=== PATIENT | female | born 1985 | race Caucasian/White ===

== ENCOUNTER 2017-06-26 19:02 | Emergency (ER) | payer OTHER ==
[~2017-06-26] VITALS: Ht 175.3 cm; Wt 99.8 kg
--- OUTSIDE RECORDS SUMMARY | 2017-06-26 19:11 | External Medical Summary Rpt | CCD ---
Author Author [facility] Organization [employer] Address Unknown Phone Unavailable Purpose Continuity of Care Document - through 2016
--- OUTSIDE RECORDS SUMMARY | 2017-06-26 19:11 | External Medical Summary Rpt | CCD ---
Author Author , ROSAURA KAPLAN Address Unknown Phone [email or web address] Purpose Continuity of Care Document - through 2016
--- OUTSIDE RECORDS SUMMARY | 2017-06-26 19:11 | External Medical Summary Rpt | CCD ---
Author Author , ROSAURA KAPLAN Address Unknown Phone [email or web address] ([place]) Purpose Continuity of Care Document - through 2016
--- OUTSIDE RECORDS SUMMARY | 2017-06-26 19:12 | External Medical Summary Rpt | CCD ---
Demographics Preferred Language Setswana Marital Status Unknown Holiness Affiliation Unknown Race Unknown Ethnic Group Unknown Author Author , ROSAURA KAPLAN Address Unknown Phone Immunization No patient found.
--- OUTSIDE RECORDS SUMMARY | 2017-06-26 19:12 | External Medical Summary Rpt | CCD ---
Demographics Preferred Language Frisian Marital Status Unknown Hindu Affiliation Unknown Race Unknown Ethnic Group Unknown Author Author , ROSAURA KAPLAN Address Unknown Phone Immunization No patient found.
[2017-06-26] MEDS ORDERED: PREDNISONE 20MG20 MG PO (20:02)
[2017-06-26] MEDS ORDERED: ZITHROMAX Z PA250 MG PO (20:02)
[2017-06-26] MEDS ORDERED: BENZONATATE200 MG PO (20:02)
[2017-06-26] MEDS ORDERED: PROVENTIL0.09 MG/A1 IH (20:02)
[2017-06-26 20:03] VITALS: BP 154/98
--- NOTE | 2017-06-26 20:03 | Urgent Treatment Center Report ---
History of Present Issue Date/Time Seen by Provider 06/26/171946 Visit Reason Pt arrived:Walked Presenting Problem:SORE THROAT, CHEST CONGESTION X 2 WEEKS Location if Accident: Onset of symptoms date/time:/ or onset unknown for:MEDICAL HX UNKNOWN Have you (or family members/close friends) recently traveled outside the [place]? N If Yes, where/when: Have you had exposure to infectious disease within the past month? TB? Other? Specify: c/o cough, chest congestion, sore throat x 2-3 weeks. Initially fever and cough but fever resolved. Thought she was improving until symptoms worsened 2-3 days ago. No improvement with robitussin, tylenol, ibuprofen "and other things I can' t remember over the counter". Hx of tobacco use but quit 2 years ago. Reports bronchitis each winter and knows she just needs a zpack to get better. Hx of lisinopril. Hasn't been monitoring BP at home although she has a cuff and can. Denies GARVEY, vision change, CP. Mild SOA today w/ exertion at work. Denies known wheezing but at times, has "felt wheezy". Works in a hosptial setting. Source patient Exam Limitations no limitations ALLERGIES Coded Allergies: No Known Allergies (06/26/17) History Medical History General CAD? No Angina: No NC: No Hypertension? No Hyperlipidemia? No CHF? No DVT? No PE? No COPD? No Asthma? No Anemia? No GERD? No Gastric ulcers? No GI Bleed? No Hernia? No Thyroid Problems? No Hypothyroidism? No CVA? No Seizures? No Diabetes? No Renal Insuffiency? No UTI? No Stones? No BPH? No GB Disease: No Nephritic Syndrome? No Asplenia? No Hepatitis? No Sickle Cell Disease? No Arthritis? No Migraines? No Cataracts? No Glaucoma? No MRSA? No HIV? No TB? No Anxiety? No Depression? No Cancer? No More? No Immunization HX DT/Tetanus 1-4 Years Ago Surgical Hx Previous Surgery?N Social History Smoking Hx Smoker: Never Smoker Tobacco: No Alcohol Alcohol: No Review of Systems All Other Systems Reviewed and Negative Constitutional chills (initially), malaise ("just so tired lately"), denies weakness Eyes denies drainage ENT see HPI, ear pain (left), nose discharge, nose congestion, throat pain (worse with cough). Respiratory see HPI, cough (prod, yellow to occasional grn) Cardiovascular see HPI Gastrointestinal denies no symptoms reported Musculoskeletal denies joint pain Skin denies rash Psychiatric/Neurological denies headache Physical Exam Vital Signs Vital Signs Date Time Temp Pulse Resp B/P Pulse O2 O2 Flow FiO2 Ox Delivery Rate 06/26 1944 98.1 118 16 156/100 98 General Appearance no apparent distress, obese Eye Exam - bilateral eye normal exam Ear, Nose, Throat left TM erythematous w/o visible landmarks, mild nasal congestion, hoarse voice, clear PND; right TM and jesús EACs unremarkable Neck non-tender, supple Respiratory Status Yes: trachea midline, chest symmetrical, non productive cough (worse with deep breathing). No: respiratory distress, use of accessory muscles, pain on inspiration, pain on expiration. Lung Sounds anterior: lungs clear. posterior: lungs clear. bilateral: lungs clear. Cardiovascular no peripheral edema, no murmur, tachycardia Neurologic alert, oriented x 3 Mental status normal mood/affect Skin normal color, warm/dry Lymphatic no adenopathy Medical Decision Making LABS/Meds/Orders Pt receiving controlled substance in ED? No Departure Departure Time of Disposition 1957 Disposition DC Home or Self Care(routine) Clinical Impression Primary Impression: Left otitis media Qualifiers: Otitis media type: suppurative Chronicity: acute Recurrence: not specified as recurrent Spontaneous tympanic membrane rupture: without spontaneous rupture Qualified Code: H66.002 - Acute suppurative otitis media without spontaneous rupture of ear drum, left ear Secondary Impressions: Bronchitis High blood pressure Qualifiers: Hypertension type: unspecified Qualified Code: I10 - Essential ( primary) hypertension Condition STABLE Referrals NO REFERRAL Since you do not have a primary care doctor, we have provided you with a list of providers accepting patients. I would encourage you find him a new primary care provider and make an appt PIERCE as it can take weeks to get a new patient appointment. In the meantime, follow up in the clinic or ER for new, worsening or persistent symptoms. Patient Instructions DI for Otitis Media (Middle Ear Infection)-Child, DI for Viral Upper Respiratory Infection -- Adult Additional Instructions * start antibiotic today. Be sure to complete entire prescription even if feeling better. * Monitor Temp. Tylenol every 4 hours as needed no more then 5 times a day or 4000mg in 24 hours and/or ibuprofen every 6 hours as needed no more then 3200mg in 24 hours (as long as your primary care doctor has told you that it is ok to take both) for fever/aches/pain. ER if fever no less than 101 despite tylenol and ibuprofen or if persist beyond another 48 hours * humidifier/vaporizer/hot steamy shower * Inhaler every 4-6 hours as needed like we discussed. If unsure how to use it, ask pharmacist to demonstrate how. Should help open airways and improve cough, wheezing, shortness of breath. * Mucinex during the day for your cough and cough suppressant only at night. Be sure to drink lots of water. Insurance may not cover a prescription of mucinex. Might be cheaper to get 400mg tablets and take 2 tablets morning, midday and evening all with lots of water. * Tessalon Perles will not cause drowsiness but use at bedtime to help stop cough so that you can get some rest * Start steroid today. Helps with inflammation therefore, cough and wheezing. Follow directions on package. Rvwd side effects. Pt reports they have taken them before. *Agrees to monitor BP at home and if remains elevated or raises high, stop the steroid and follow up immediately. Discharge Counseling Counseled pt/family regarding diagnosis, medications/RX, home care, follow up needs Prescriptions Current Visit Scripts Azithromycin (Zithromycin (Z-LISANDRA) 250MG Tab) 250 MG PO DAILY #6 TAB TAKE TWO (2) TABLETS ON DAY 1, THEN ONE (1) TABLET DAY #2 THRU #5 ALBUTEROL (Proventil Hfa Inhaler) 1-2 PUFF IH Q4-6H PRN PRN SOA, wheezing #1 CAN Benzonatate 200 MG PO QHSP PRN cough #14 SGL Prednisone (Prednisone 20MG) 20 MG PO BID #10 TAB at 2007
== END 2017-06-26 20:05 | disposition home or self-care (01) ==
LOC: UTC 19:02
DX: H66.002 Acute suppurative otitis media without spontaneous rupture of ear drum, left ear (principal); I10 Essential (primary) hypertension; Z87.891 Personal history of nicotine dependence